=== PATIENT | female | born 1980 | race African-American/Black ===

== ENCOUNTER 2017-02-08 10:23 | Emergency (ER) | payer MEDICAID ==
[~2017-02-08 10:23] MED LIST: DOXY100T PO; SYNT25TA
[2017-02-08 10:25] VITALS: BP 129/76; PULSE 94; RESP 24; TEMP 98.2; O2SAT 100
[2017-02-08] MEDS ORDERED: ONDANSETRON HCL 4 MG/2 ML VIAL IV PUSH ONE (10:45)
[2017-02-08] MEDS ORDERED: LORazepam 2 MG/ML VIAL IV ONE (10:45)
[2017-02-08] MEDS ORDERED: SODIUM CHLOR 0.9% 1000 ML INJ 1,000 ML IV ONE (10:45)
[2017-02-08] MEDS ORDERED: LORA-392 PO (12:25)
--- NOTE | 2017-02-08 12:25 | PD ---
HPI Chief Complaint: Anxiety Time Seen by Provider: 10:31 Travel History International Travel<30 days: No Contact w/Intl Traveler<30days: No Traveled to known affect area: No History of Present Illness HPI 36-year-old female arrives complaining of anxiety starting at 3 AM while she was at work. She notes multiple personal stressors. She believes she is dehydrated. She reports dyspnea similar to prior episodes of anxiety/panic attack. Severity moderate. Timing constant. No suicidal or homicidal ideation. Patient denies drugs and alcohol. She smokes tobacco. Oral intake is decreased. PFSH Past Medical History Anxiety: Yes Cancer: No Cardiovascular Problems: No COPD: No Diabetes: No Diminished Hearing: No Gastrointestinal Disorders: No Genitourinary: No Implanted Vascular Access Dvce: No Musculoskeletal: No Neurologic: No Psychiatric: Yes (PANIC ATTACK, NERVOUSNESS) Reproductive: No Respiratory: No Immunizations Current: No Thyroid Disease: Yes (HYPOTHYROID) Tetanus Vaccination: Unknown Influenza Vaccination: No ?: Not LMP: LAST SUNDAY : 4 Para: 1 Miscarriage: 2 Social History Alcohol Use: Yes (OCC ) Tobacco Use: Yes (8 cig per day) Substance Use: No (DENIES ) Allergies-Medications (Allergen,Severity, Reaction): Coded Allergies: Penicillin (Verified Allergy, Severe, 02/08/17) Reported Meds & Prescriptions Reported Meds & Active Scripts Active Review of Systems Except as stated in HPI: all other systems reviewed are Neg General / Constitutional: No: Fever Psychiatric: Positive: Anxiety Physical Exam Narrative GENERAL: 36-year-old female well-nourished well-developed mildly anxious SKIN: Focused skin assessment warm/dry. HEAD: Atraumatic. Normocephalic. EYES: Pupils equal and round. No scleral icterus. No injection or drainage. ENT: No nasal bleeding or discharge. Mucous membranes pink and moist. NECK: Trachea midline. No JVD. CARDIOVASCULAR: Regular rate and rhythm. No murmur appreciated. RESPIRATORY: No accessory muscle use. Clear to auscultation. Breath sounds equal bilaterally. GASTROINTESTINAL: Abdomen soft, non-tender, nondistended. Hepatic and splenic margins not palpable. MUSCULOSKELETAL: No obvious deformities. No clubbing. No cyanosis. No edema. NEUROLOGICAL: Awake and alert. No obvious cranial nerve deficits. Motor grossly within normal limits. Normal speech. PSYCHIATRIC: No suicidal or homicidal ideation. Data Data Last Documented VS Vital Signs Date Time Temp Pulse Resp B/P Pulse Ox O2 Delivery O2 Flow Rate FiO2 02/08/17 10:25 98.2 94 24 129/76 100 Room Air Vital signs reviewed Orders Oximetry (02/08/17 10:42) Iv Access Insert/Monitor (02/08/17 10:42) Lorazepam Inj (Ativan Inj) (02/08/17 10:45) Sodium Chlor 0.9% 1000 Ml Inj (Ns 1000 M (02/08/17 10:45) Ondansetron Inj (Zofran Inj) (02/08/17 10:45) [facility] Medical Decision Making Medical Screen Exam Complete: Yes Emergency Medical Condition: Yes Medical Record Reviewed: Yes Differential Diagnosis Panic attack, generalized anxiety, depression, tobaccoism Narrative Course The patient is resting comfortably and feels better, is alert and in no distress. The patients results and examination findings were discussed. The repeat examination is unremarkable and benign. The history, exam, diagnostic testing, and current condition do not suggest any significant pathology to warrant further testing, continued ED treatment, admission, or surgical evaluation at this point. The vital signs have been stable. The patient does not have uncontrollable pain, intractable vomiting, or other significant symptoms. The patient's condition is stable and appropriate for discharge. The patient will pursue further outpatient evaluation with a primary care physician or other designated or consulting physician as indicated in the discharge instructions. The patient expressed understanding and was agreeable with this plan. Diagnosis Primary Impression: Anxiety Referrals: Primary Care Physician 2 days Additional Instructions: You have a choice when it comes to health care, and we are glad that you chose [facility]. Hopefully, we have met your expectations on today's visit. You are welcome to return to [facility] at any time, as we are committed to meeting the health care needs of our community. Med/Other Pt SpecificInfo: Prescription(s) given Scripts Lorazepam (Ativan)0.5 Mg Tab0.5 Mg PO HS PRN (ANXIETY AND/OR AGITATION) #5 TAB Ref 0 Prov:Alex Pickett MD 02/08/17 Disposition: 01 DISCHARGE HOME Condition: Stable Alex Pickett MD February 08, 2017 12:25
[2017-02-08 13:01] VITALS: BP 111/55
== END 2017-02-08 13:15 | disposition home or self-care (01) ==
LOC: NEPD 10:23
DX: F41.9 Anxiety disorder, unspecified (principal); E03.9 Hypothyroidism, unspecified
CPT/HCPCS: 96361; 96374; 96375; 99284; J2060; J2405; J7030